=== PATIENT | female | born 1950 | race Caucasian/White ===

== ENCOUNTER 2016-11-02 07:04 | Outpatient (CLI) | payer BC ==
[2016-11-02 11:54] LABS: CHOL/HDL RATIO 2.7 (<4.4); CHOLESTEROL 251 mg/dL; HDL CHOLESTEROL 92 mg/dL; LDL/HDL RATIO 1.6 (<4.4); TRIGLYCERIDES 48 mg/dL; VLDL CHOLESTEROL 10 mg/dL
== END 2016-11-02 07:05 | disposition home or self-care (01) ==
LOC: LAB.F 07:04
PROVIDERS: ATTEND Internal Medicine
DX: Z13.6 Encounter for screening for cardiovascular disorders (principal)
CPT/HCPCS: 36415; 80061

== ENCOUNTER 2017-03-16 13:24 | Outpatient (CLI) | payer BC, OTHER ==
--- NOTE | 2017-03-17 20:02 | XRAY Report ---
DATE OF SERVICE: 03/16/2017 TWO-VIEW CHEST: 03/16/2017 CLINICAL INDICATION: Chest pain. COMPARISON: 03/11/2012 FINDINGS: Frontal and lateral views of the chest demonstrate a normal cardiac silhouette. The lungs are clear. No effusion or pneumothorax is present. IMPRESSION: No evidence of acute cardiopulmonary disease. No significant interval change. TD: 03/17/2017 10:02
== END 2017-03-16 13:25 | disposition home or self-care (01) ==
LOC: RT.S 13:24
PROVIDERS: ATTEND Internal Medicine
DX: R07.9 Chest pain, unspecified (principal); F41.1 Generalized anxiety disorder; G47.00 Insomnia, unspecified; Z78.0 Asymptomatic menopausal state
CPT/HCPCS: 71020; 93005

== ENCOUNTER 2017-03-17 08:53 | Outpatient (CLI) | payer OTHER ==
--- NOTE | 2017-03-18 17:06 | DEXA Report ---
DEXA SCAN: 03/17/2017 CLINICAL INDICATION: Postmenopausal. TECHNIQUE: Dual energy x-ray absorptiometry (DXA) was performed on a [employer]joo.[employer] system. Regions measured are the AP spine, femoral neck, and, if needed, forearm. COMPARISON: None. In accordance with the International Society for Clinical Densitometry (ISCD) guidelines, data from previous exams may be reanalyzed using current recommendations and techniques. This is done to allow a more accurate basis for comparison with the current study. FINDINGS Data for the lumbar spine is as follows: REGION BMD (g/cm/cm) T-SCORE Z-SCORE L1 0.942 -1.6 0.1 L2 1.040 -1.3 0.3 L3 1.119 -0.7 1.0 L4 0.956 -2.0 -0.4 TOTAL L1-L4 1.010 -1.4 0.2 NOTE: All evaluable vertebrae are used for classification. Data for the hip is as follows: REGION BMD (g/cm/cm) T-SCORE Z-SCORE Neck 0.748 -2.1 -0.6 TOTAL 0.800 -1.6 -0.4 NOTE: The femoral neck or total proximal femur, whichever is lowest, is used for classification. IMPRESSION THE WHO CLASSIFICATION BASED ON THE INTERNATIONAL REFERENCE STANDARD IS OSTEOPENIA. THE FRACTURE RISK IS INCREASED. RECOMMENDATION: Patients with diagnosis of osteoporosis or osteopenia should have regular bone mineral density assessment. For those eligible for Medicare, routine testing is allowed once every 2 years. Testing frequency can be increased for patients who have rapidly progressing disease or for those who are receiving medical therapy to restore bone mass. COMMENT: World Health Organization (WHO) definitions for osteoporosis and osteopenia: NORMAL BMD: T-score at 1.0 or higher, fracture risk is low. OSTEOPENIA BMD: T-score between 1.0 and -2.5, fracture risk is increased. OSTEOPOROSIS BMD: T-score at 2.5 or lower, fracture risk high. National Osteoporosis Foundation recommends: 1. Obtain adequate dietary calcium (at least 1200 mg per day) and vitamin D (400 -800 international units per day). 2. Participate, as appropriate, in regular weightbearing and muscle- strengthening exercise. 3. Avoid tobacco use and reduce alcohol and caffeine intake. 4. For more detailed information see the website at www.NOF.org. TD: 03/17/2017 10:47 MTDD
== END 2017-03-17 08:54 | disposition home or self-care (01) ==
LOC: DI 08:53
PROVIDERS: ATTEND Internal Medicine
DX: M85.89 Other specified disorders of bone density and structure, multiple sites (principal)
CPT/HCPCS: 77080

== ENCOUNTER 2018-04-05 10:51 | Day surgery (SDC) | payer MEDICARE, BC ==
[2018-04-05] MEDS ORDERED: LACTATED RINGERS 1,000 ML IV ONE (10:55)
[2018-04-05] MEDS ORDERED: fentaNYL 250 MCG/5 ML VIAL IVP ONE (12:34)
[2018-04-05] MEDS ORDERED: MIDAZOLAM 2 MG/2 ML VIAL IVP ONE (12:34)
[2018-04-05 13:17] VITALS: BP 111/48
== END 2018-04-05 10:52 | disposition home or self-care (01) ==
LOC: SDS 10:51
PROVIDERS: ATTEND Internal Medicine
PROC: 0DJD8ZZ Inspection of Lower Intestinal Tract, Via Natural or Artificial Opening Endoscopic (ICD-10-PCS; principal; 2018-04-05 12:00)
DX: Z12.11 Encounter for screening for malignant neoplasm of colon (principal); Z83.71 Family history of colonic polyps; K64.8 Other hemorrhoids; K57.30 Diverticulosis of large intestine without perforation or abscess without bleeding; Z80.0 Family history of malignant neoplasm of digestive organs
CPT/HCPCS: G0105; J3010; J7120

== ENCOUNTER 2019-05-15 07:13 | Outpatient (CLI) | payer MEDICARE, BC ==
[2019-05-15 10:04] LABS: HGB - HEMOGLOBIN 14.2 g/dL (12.0-16.0); MEAN CORPUSCULAR HEMOGLOBIN 30.1 pg (27.0-31.0); MEAN CORPUSCULAR HGB CONC 32.6 g/dL (32.0-36.0); MEAN CORPUSCULAR VOLUME 92.6 fL (81.0-99.0); MEAN PLATELET VOLUME 9.8 fL (7.9-10.8); RED BLOOD COUNT 4.71 10^6/uL (4.20-5.40); RED CELL DISTRIBUTION WIDTH 13.2 % (12.0-15.0); WHITE BLOOD COUNT 5.3 x10^3/uL (4.8-10.8)
[2019-05-15 10:24] LABS: ALBUMIN 4.1 g/dL (3.2-5.5); ALBUMIN/GLOBULIN RATIO 1.6 (1.0-2.2); ALKALINE PHOSPHATASE 68 IU/L (42-121); ALT ALANINE AMINOTRANSFERASE 16 IU/L (10-60); AST ASPARTATE AMINOTRANSFERASE 17 IU/L (10-42); BILIRUBIN,TOTAL 0.6 mg/dL (0.2-1.0); BUN - BLOOD UREA NITROGEN 20 mg/dL (6-20); CALCIUM 9.2 mg/dL (8.5-10.3); CARBON DIOXIDE - CO2 27 mmol/L (21-32); CHLORIDE 106 mmol/L (101-111); CHOL/HDL RATIO 2.7 (<4.4); CHOLESTEROL 236 mg/dL; CREATININE 0.7 mg/dL (0.4-1.0); GFR - MDRD 83 (>89); GLUCOSE 91 mg/dL (70-100); HDL CHOLESTEROL 88 mg/dL; LDL CHOLESTEROL,CALCULATED 139 mg/dL; LDL/HDL RATIO 1.6 (<4.4); SODIUM 140 mmol/L (135-145); TOTAL PROTEIN 6.6 g/dL (6.7-8.2); VLDL CHOLESTEROL 9 mg/dL
== END 2019-05-15 07:14 | disposition home or self-care (01) ==
LOC: LAB.S 07:13
PROVIDERS: ATTEND Family Medicine Sports Medicine
DX: Z00.00 Encounter for general adult medical examination without abnormal findings (principal); F33.41 Major depressive disorder, recurrent, in partial remission
CPT/HCPCS: 36415; 80053; 80061; 83721; 84443; 85027

== ENCOUNTER 2020-06-20 07:38 | Outpatient (CLI) | payer MEDICARE, BC ==
[2020-06-20 15:33] LABS: HCT - HEMATOCRIT 43.4 % (37.0-47.0); MEAN CORPUSCULAR HGB CONC 32.3 g/dL (32.0-36.0); MEAN CORPUSCULAR VOLUME 93.1 fL (81.0-99.0); MEAN PLATELET VOLUME 9.7 fL (7.9-10.8); RED BLOOD COUNT 4.66 10^6/uL (4.20-5.40); RED CELL DISTRIBUTION WIDTH 13.6 % (12.0-15.0); WHITE BLOOD COUNT 4.8 x10^3/uL (4.8-10.8)
[2020-06-20 16:11] LABS: ALBUMIN 4.3 g/dL (3.2-5.5); ALBUMIN/GLOBULIN RATIO 1.7 (1.0-2.2); ALKALINE PHOSPHATASE 72 IU/L (42-121); ALT ALANINE AMINOTRANSFERASE 19 IU/L (10-60); AST ASPARTATE AMINOTRANSFERASE 19 IU/L (10-42); BILIRUBIN,TOTAL 0.8 mg/dL (0.2-1.0); BUN - BLOOD UREA NITROGEN 20 mg/dL (6-20); CALCIUM 9.4 mg/dL (8.5-10.3); CARBON DIOXIDE - CO2 26 mmol/L (21-32); CHLORIDE 107 mmol/L (101-111); CHOL/HDL RATIO 2.8 (<4.4); CHOLESTEROL 245 mg/dL; CREATININE 0.8 mg/dL (0.4-1.0); GFR - MDRD 71 (>89); GLUCOSE 94 mg/dL (70-100); HDL CHOLESTEROL 88 mg/dL; LDL CHOLESTEROL,CALCULATED 149 mg/dL; LDL/HDL RATIO 1.7 (<4.4); POTASSIUM 3.9 mmol/L (3.5-5.0); SODIUM 141 mmol/L (135-145); TOTAL PROTEIN 6.9 g/dL (6.7-8.2); TRIGLYCERIDES 40 mg/dL; VLDL CHOLESTEROL 8 mg/dL
== END 2020-06-20 07:39 | disposition home or self-care (01) ==
LOC: LAB.S 07:38
PROVIDERS: ATTEND Family Medicine Sports Medicine
DX: Z00.00 Encounter for general adult medical examination without abnormal findings (principal); F33.41 Major depressive disorder, recurrent, in partial remission; J45.20 Mild intermittent asthma, uncomplicated
CPT/HCPCS: 36415; 80053; 80061; 83721; 84443; 85027

== ENCOUNTER 2021-08-09 19:02 | Emergency (ER) | payer MEDICARE, BC ==
[2021-08-09] MEDS ORDERED: BACITRACIN ZINC OINT 1 PACKET TOP STA (20:16)
--- NOTE | 2021-08-09 20:22 | ED Physician Documentation ---
History of Present Illness - Stated complaint Stated Complaint: FELL OFF LADDER/HEAD INJURY/SKIN TEAR - Chief complaint Chief Complaint: Laceration - History obtained from History obtained from: Patient - History of Present Illness Timing: Today Pain level max: 7 Pain level now: 4 - Additonal information Additional information: 70-year-old female fell off of a 4 foot ladder today injuring her left ribs, her head, occiput, and the left forearm. Tetanus is up-to-date. Better with Motrin. No loss of consciousness. No vomiting. No neck or back pain. No numbness or tingling. No abdominal pain. Does not take any anticoagulants. 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 HEENT: Tonsil/Adenoidectomy - Present Medications Home Medications: Ambulatory Orders Medication Instructions Recorded Confirmed Escitalopram [Lexapro] 10 mg PO DAILY 04/05/18 08/09/21 buPROPion [Wellbutrin Sr] 150 mg PO DAILY 04/05/18 08/09/21 - Allergies Allergies/Adverse Reactions: Allergies Allergy/AdvReac Type Severity Reaction Status Date / Time No Known Drug Allergies Allergy Verified 08/09/21 19:20 - Social History Does the pt smoke?: No Smoking Status: Never smoker Does the pt drink ETOH?: No Does the pt have substance abuse?: No - Immunizations Immunizations are current?: Yes PD ED PE NORMAL - Vitals Vital signs reviewed: Yes - General General: Alert and oriented X 3, No acute distress, Well developed/nourished - HEENT HEENT: PERRL, Moist mucous membranes, Other (Small occipital hematoma. No palp able skull fractures) - Neck Neck: Supple, no meningeal sign, No bony TTP, C-Spine cleared by NEXUS criteria - Cardiac Cardiac: RRR, Strong equal pulses - Respiratory Respiratory: No respiratory distress, Clear bilaterally - Abdomen Abdomen: Soft, Non tender, Non distended - Back Back: No spinal TTP (Mild tenderness palpation left posterior ribs. No crepitus. No ecchymosis.) - Derm Derm: Warm and dry - Extremities Extremities: No tenderness to palpate, Normal ROM s pain, Other (Small skin tear to the left forearm. No active bleeding. 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, No motor deficit, No sensory deficit, Normal speech Eye Opening: Spontaneous Motor: Obeys Commands Verbal: Oriented GCS Score: 15 - Psych Psych: Normal mood, Normal affect Results - Vitals Vitals: Vital Signs - 24 hr 08/09/21 08/09/21 19:10 22:03 Temperature 36.6 C 36.7 C Heart Rate 67 65 Respiratory 16 16 Rate Blood Pressure 154/90 H 145/88 H O2 Saturation 96 98 Oxygen O2 Source Room air - Rads (name of study) Head CT Radiology: Final report received, EMP read contemporaneously, See rad report Left ribs with chest x-ray Radiology: Final report received, EMP read contemporaneously, See rad report PD MEDICAL DECISION MAKING - ED course Complexity details: reviewed results, re-evaluated patient, considered differential, d/w patient, d/w family ED course: The skin tear on the left arm was cleansed and bandaged. Wound care instructions given. No acute findings on head CT. The chest x-ray does show small indistinct clustered nodular opacities peripherally in the left lung base. We will have her follow-up with her doctor for a chest CT. No evidence of pneumothorax, hemothorax or displaced rib fractures. Pain well controlled with Motrin. Patient counseled regarding signs and symptoms for which I believe and urgent re-evaluation would be necessary. Patient with good understanding of and agreement to plan and is comfortable going home at this time This document was made in part using voice recognition software. While efforts are made to proofread this document, sound alike and grammatical errors may occur. Chest Xray IMPRESSION: 1. No displaced rib fracture identified. 2. Small indistinct clustered nodular opacities peripherally in left lung base. The findings are nonspecific and may represent an infectious or inflammatory process but neoplasm cannot be excluded. Recommend further evaluation with chest CT when clinically feasible. 3. Findings compatible with COPD. CT HEAD IMPRESSION: 1. No acute intracranial abnormality. Departure - Departure Disposition: Home, Self Care Clinical Impression: Skin tear, Lung nodule Closed head injury Qualifiers: Encounter type: initial encounter Qualified Code(s): S09.90XA - Unspecified injury of head, initial encounter Chest wall contusion Qualifiers: Encounter type: initial encounter Laterality: left Qualified Code(s): S20.212A - Contusion of left front wall of thorax, initial encounter Condition: Good Instructions: ED Contusion Chest Wall, ED Head Injury Closed, ED Avulsion Dermal Follow-Up: WINNIE CALDERON MD [Primary Care Provider] - Within 1 week Comments: Please follow-up with your doctor for further care. Return if you worsen. You can use Motrin or Tylenol as needed for pain. Keep the wound on your arm clean. Return if you notice redness swelling or drainage from the wound. You do have clustered nodule opacities peripherally in your left lung base on chest x-ray. This is nonspecific, but a further evaluation with a chest CT is recommended with your doctor. Please follow-up with your doctor this week. Chest Xray IMPRESSION: 1. No displaced rib fracture identified. 2. Small indistinct clustered nodular opacities peripherally in left lung base. The findings are nonspecific and may represent an infectious or inflammatory process but neoplasm cannot be excluded. Recommend further evaluation with chest CT when clinically feasible. 3. Findings compatible with COPD. CT HEAD IMPRESSION: 1. No acute intracranial abnormality. Discharge Date/Time: 08/09/21 22:08
--- NOTE | 2021-08-09 21:27 | CT Report ---
PROCEDURE: HEAD WO INDICATIONS: fall, head injury off ladder TECHNIQUE: Noncontrast 5 mm thick angled axial sections acquired from the foramen magnum to the vertex. For rad iation dose reduction, the following was used: automated exposure control, adjustment of mA and/or k V according to patient size. COMPARISON: None. FINDINGS: Image quality: Excellent. CSF spaces: Basal cisterns are patent. No extra-axial fluid collections. Ventricles are normal in size and shape. Brain: No intracranial hemorrhage, mass, or mass effect. Steven-white matter interface appears preser siomara. There are mild periventricular matter hypodensities consistent with mild chronic small vessel is chemic changes. Skull and face: Calvarium and visualized facial bones are intact, without suspicious lesions. Sinuses: Visualized sinuses and mastoids are clear. IMPRESSION: 1. No acute intracranial abnormality. Reviewed by: Marino Mueller MD on 08/09/2021 9:25 PM PDT Approved by: Marino Mueller MD on 08/09/2021 9:25 PM PDT Station ID: [id number]
--- NOTE | 2021-08-09 21:49 | XRAY Report ---
PROCEDURE: Ribs w/PA Chest LT INDICATIONS: fall, L rib pain TECHNIQUE: 2 views of the left ribs were acquired, along with a single view chest. COMPARISON: None. FINDINGS: Surgical changes and devices: None. Bones and chest wall: No displaced rib fracture identified. No suspicious bony lesions. Overlying s oft tissues appear unremarkable. Lungs and pleura: There are small indistinct clustered nodular opacities within the left lung base. There is hyperinflation of the lungs with flattening of hemidiaphragms suggestive of COPD. No pleural effusions or pneumothorax. Mediastinum: Mediastinal contours appear normal. Heart size is normal. IMPRESSION: 1. No displaced rib fracture identified. 2. Small indistinct clustered nodular opacities peripherally in left lung base. The findings are nons pecific and may represent an infectious or inflammatory process but neoplasm cannot be excluded. Shaheen mmend further evaluation with chest CT when clinically feasible. 3. Findings compatible with COPD. Reviewed by: Marino Mueller MD on 08/09/2021 9:48 PM PDT Approved by: Marino Mueller MD on 08/09/2021 9:48 PM PDT Station ID: [id number]
[2021-08-09 22:04] VITALS: BP 145/88
== END 2021-08-09 22:08 | disposition home or self-care (01) ==
LOC: ED 19:02
DX: S09.90XA Unspecified injury of head, initial encounter (principal); S20.212A Contusion of left front wall of thorax, initial encounter; S51.802A Unspecified open wound of left forearm, initial encounter; W11.XXXA Fall on and from ladder, initial encounter
CPT/HCPCS: 70450; 71101; 99282; 99284; A9270

== ENCOUNTER 2021-08-28 11:48 | Outpatient (CLI) | payer MEDICARE, BC ==
[2021-08-28 16:35] LABS: CREATININE 0.8 mg/dL (0.4-1.0)
== END 2021-08-28 11:49 | disposition home or self-care (01) ==
LOC: LAB.S 11:48
PROVIDERS: ATTEND Family Medicine
DX: R91.1 Solitary pulmonary nodule (principal)
CPT/HCPCS: 36415; 82565

== ENCOUNTER 2021-11-26 07:09 | Outpatient (CLI) | payer MEDICARE, BC ==
[2021-11-26 15:35] LABS: BASOPHILS # (AUTO) 0.1 10^3/uL (0.0-0.1); BASOPHILS % (AUTO) 1.1 %; EOSINOPHILS # (AUTO) 0.2 10^3/uL (0.0-0.7); EOSINOPHILS % (AUTO) 4.6 %; HCT - HEMATOCRIT 45.5 % (37.0-47.0); HGB - HEMOGLOBIN 14.6 g/dL (12.0-16.0); LYMPHOCYTES # (AUTO) 1.2 10^3/uL (1.5-3.5); LYMPHOCYTES % (AUTO) 28.4 %; MEAN CORPUSCULAR HEMOGLOBIN 29.6 pg (27.0-31.0); MEAN CORPUSCULAR HGB CONC 32.1 g/dL (32.0-36.0); MEAN CORPUSCULAR VOLUME 92.3 fL (81.0-99.0); MEAN PLATELET VOLUME 9.5 fL (7.9-10.8); MONOCYTES # (AUTO) 0.4 10^3/uL (0.0-1.0); MONOCYTES % (AUTO) 10.1 %; NEUTROPHILS # (AUTO) 2.4 10^3/uL (1.5-6.6); NEUTROPHILS % (AUTO) 55.8 %; PLT - PLATELET COUNT 260 10^3/uL (130-450); RED BLOOD COUNT 4.93 10^6/uL (4.20-5.40); RED CELL DISTRIBUTION WIDTH 12.9 % (12.0-15.0); WHITE BLOOD COUNT 4.4 x10^3/uL (4.8-10.8)
[2021-11-26 16:34] LABS: ESTIMATED AVERAGE GLUCOSE 111 mg/dL (70-100); HEMOGLOBIN A1c% 5.5 % (4.27-6.07)
[2021-11-26 16:43] LABS: ALBUMIN/GLOBULIN RATIO 1.4 (1.0-2.2); ALKALINE PHOSPHATASE 75 IU/L (42-121); ALT ALANINE AMINOTRANSFERASE 16 IU/L (10-60); AST ASPARTATE AMINOTRANSFERASE 16 IU/L (10-42); BILIRUBIN,TOTAL 0.9 mg/dL (0.2-1.0); BUN - BLOOD UREA NITROGEN 16 mg/dL (6-20); CALCIUM 9.4 mg/dL (8.5-10.3); CARBON DIOXIDE - CO2 28 mmol/L (21-32); CHLORIDE 105 mmol/L (101-111); CHOL/HDL RATIO 2.9 (<4.4); CHOLESTEROL 238 mg/dL; CREATININE 0.8 mg/dL (0.4-1.0); GFR - MDRD 71 (>89); GLUCOSE 88 mg/dL (70-100); HDL CHOLESTEROL 82 mg/dL; LDL CHOLESTEROL,CALCULATED 148 mg/dL; LDL/HDL RATIO 1.8 (<4.4); POTASSIUM 3.9 mmol/L (3.5-5.0); SODIUM 140 mmol/L (135-145); THYROID STIMULATING HORMONE 4.15 uIU/mL (0.34-5.60); TOTAL PROTEIN 6.8 g/dL (6.7-8.2); TRIGLYCERIDES 40 mg/dL; VLDL CHOLESTEROL 8 mg/dL
== END 2021-11-26 07:10 | disposition home or self-care (01) ==
LOC: LAB.S 07:09
PROVIDERS: ATTEND Internal Medicine
DX: Z00.00 Encounter for general adult medical examination without abnormal findings (principal)
CPT/HCPCS: 36415; 80053; 80061; 83036; 83721; 84443; 85025

== ENCOUNTER 2022-07-13 07:00 | Outpatient (CLI) | payer MEDICARE, BC ==
--- NOTE | 2022-07-13 11:14 | XRAY Report ---
PROCEDURE: Chest 2 View X-Ray INDICATIONS: COUGH TECHNIQUE: 2 views of the chest were acquired. COMPARISON: Chest x-ray 08/09/2021 FINDINGS: Surgical changes and devices: None. Lungs and pleura: No pleural effusions or pneumothorax. Lungs are clear. Mediastinum: Mediastinal contours appear normal. Heart size is normal. Bones and chest wall: No suspicious bony lesions. Overlying soft tissues appear unremarkable. IMPRESSION: No acute pulmonary process. Reviewed by: Desire Chavira MD on 07/13/2022 11:13 AM PDT Approved by: Desire Chavira MD on 07/13/2022 11:13 AM PDT Station ID: [id number]
== END 2022-07-13 23:59 | disposition home or self-care (01) ==
LOC: DI.S 07:00
PROVIDERS: ATTEND Physician Assistant
DX: R05.9 Cough, unspecified (principal)

== ENCOUNTER 2022-10-27 08:00 | Outpatient (CLI) | payer MEDICARE, BC ==
[2022-10-27 14:39] LABS: BILIRUBIN,URINE NEGATIVE (NEGATIVE); GLUCOSE, URINE (UA) NEGATIVE (NEGATIVE); KETONES,URINE (UA) NEGATIVE (NEGATIVE); LEUKOCYTE ESTERASE, URINE TRACE (NEGATIVE); NITRITE,URINE NEGATIVE (NEGATIVE); OCCULT BLOOD,URINE LARGE (NEGATIVE); PROTEIN,URINE NEGATIVE (NEGATIVE); UROBILINOGEN,URINE 0.2 (NORMAL) E.U./dL (NORMAL)
[2022-10-27 14:46] LABS: CLARITY,URINE HAZY (CLEAR); SQUAMOUS EPITHELIAL CELL,UR RARE Squamous (<= Few)
[2022-10-27 14:47] LABS: BACTERIA,URINE Rare /HPF (None Seen)
== END 2022-10-27 23:59 | disposition home or self-care (01) ==
LOC: LAB.S 08:00
PROVIDERS: ATTEND Emergency Medicine
DX: R30.0 Dysuria (principal)
CPT/HCPCS: 81001; 87077; 87086; 87181

== ENCOUNTER 2022-12-29 08:00 | Outpatient (CLI) | payer MEDICARE, BC | END 2022-12-29 23:59 | disposition home or self-care (01) | LOC: LAB 08:00 | PROVIDERS: ATTEND Physician Assistant Medical | DX: R30.0 Dysuria (principal) | CPT/HCPCS: 87086; 87181 ==

== ENCOUNTER 2023-12-06 04:48 | Emergency (ER) | payer MEDICARE, BC ==
--- NOTE | 2023-12-06 05:01 | ED Physician Documentation ---
PD HPI ABD PAIN - Stated complaint Stated Complaint: ABD PX - Chief complaint Chief Complaint: Abd Pain - History obtained from History obtained from: Patient - History of Present Illness Timing - onset: How many days ago (03/22) Timing - duration: Days (03/22) Timing - details: Gradual onset, Still present Quality: Cramping, Aching, Pain Location: Suprapubic, LLQ Radiation: No: Left flank Improved by: BM. No: Eating Worsened by: No: Eating Associated symptoms: Fever (subjective), Nausea. No: Diarrhea, Constipation, Dysuria Similar symptoms before: Has not had sx before Review of Systems Constitutional: reports: Fever, Chills Nose: denies: Rhinorrhea / runny nose, Congestion Throat: denies: Sore throat Respiratory: denies: Cough GI: reports: Nausea. 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 HEENT: Tonsil/Adenoidectomy - Present Medications Home Medications: Ambulatory Orders Medication Instructions Recorded Confirmed Escitalopram [Lexapro] 10 mg PO DAILY 04/05/18 08/09/21 buPROPion [Wellbutrin Sr] 150 mg PO DAILY 04/05/18 08/09/21 Amox/Clav 875/125 [Augmentin] 1 each PO Q12H #14 tablet 12/06/23 Docusate Sodium 100Mg Capsule 100 mg PO DAILY #10 cap 12/06/23 [Colace 100Mg Capsule] HYDROcod/ACETAM 5/325 [[place] 5/325] 1 ea PO Q6H PRN #14 tablet 12/06/23 Meloxicam [Mobic] 7.5 mg PO BID 10 Days #20 tablet 12/06/23 Ondansetron Odt [Zofran] 4 mg TL Q6H PRN #10 tablet 12/06/23 - Allergies Allergies/Adverse Reactions: Allergies Allergy/AdvReac Type Severity Reaction Status Date / Time No Known Drug Allergies Allergy Verified 08/09/21 19:20 - Social History Does the pt smoke?: No Smoking Status: Never smoker Does the pt drink ETOH?: No Does the pt have substance abuse?: No - Immunizations Immunizations are current?: Yes PD ED PE NORMAL - Vitals Vital signs reviewed: Yes - General General: Alert and oriented X 3, No acute distress, Well developed/nourished - Cardiac Cardiac: RRR, No murmur - Respiratory Respiratory: No respiratory distress, Clear bilaterally - Abdomen Abdomen: Normal bowel sounds, Soft, Non distended, Other (tender with some local guarding LLQ and suprapubic. No percussion nor rebound tenderness. ) Results - Vitals Vitals: Oxygen O2 Source Room air - Labs Labs: Laboratory Tests 12/06/23 12/06/23 12/06/23 05:02 05:30 05:30 WBC 8.9 RBC 4.77 Hgb 14.2 Hct 43.3 MCV 90.8 MCH 29.8 MCHC 32.8 RDW 12.9 Plt Count 232 MPV 9.7 Neut # (Auto) 6.8 H Lymph # (Auto) 1.1 L [place] # (Auto) 0.9 Eos # (Auto) 0.1 Baso # (Auto) 0.0 Absolute Nucleated RBC 0.00 Nucleated RBC % 0.0 Platelet Estimate NORMAL (130-450,000) Platelet Morphology NORMAL APPEARANCE Sodium 140 Potassium 3.8 Chloride 109 Carbon Dioxide 25 Anion Gap 6.0 BUN 15 Creatinine 0.8 Estimated GFR (MDRD) 71 L Glucose 104 Lactic Acid Calcium 9.7 Magnesium 1.7 Total Bilirubin 0.8 AST 17 ALT 15 Alkaline Phosphatase 77 Total Protein 6.9 Albumin 4.1 Globulin 2.8 Albumin/Globulin Ratio 1.5 Lipase 28 Urine Color YELLOW Urine Clarity CLEAR Urine pH 6.0 Ur Specific [place] 1.015 Urine Protein NEGATIVE Urine Glucose (UA) NEGATIVE Urine Ketones NEGATIVE Urine Occult Blood NEGATIVE Urine Nitrite NEGATIVE Urine Bilirubin NEGATIVE Urine Urobilinogen 0.2 (NORMAL) Ur Leukocyte Esterase NEGATIVE Urine RBC 0-5 Urine WBC 0-3 Ur Squamous Epith Cells RARE Squamous Urine Bacteria Rare Urine Mucus Few Strands Urine Culture Comments NOT INDICATED 12/06/23 06:02 WBC RBC Hgb Hct MCV MCH MCHC RDW Plt Count MPV Neut # (Auto) Lymph # (Auto) [place] # (Auto) Eos # (Auto) Baso # (Auto) Absolute Nucleated RBC Nucleated RBC % Platelet Estimate Platelet Morphology Sodium Potassium Chloride Carbon Dioxide Anion Gap BUN Creatinine Estimated GFR (MDRD) Glucose Lactic Acid 0.4 L Calcium Magnesium Total Bilirubin AST ALT Alkaline Phosphatase Total Protein Albumin Globulin Albumin/Globulin Ratio Lipase Urine Color Urine Clarity Urine pH Ur Specific [place] Urine Protein Urine Glucose (UA) Urine Ketones Urine Occult Blood Urine Nitrite Urine Bilirubin Urine Urobilinogen Ur Leukocyte Esterase Urine RBC Urine WBC Ur Squamous Epith Cells Urine Bacteria Urine Mucus Urine Culture Comments - Rads (name of study) abd/pelvic CT Relevant Findings:: Prelim report reviewed (sigmoid diverticulitis with short segment colonic imflallation. No perforamtion nor abscess. Prominent veins. ), EMP independent interpretation of test PD Medical Decision Making - ED course Complexity details: reviewed results (CT showing short segment colitis and diverticulitis, uncomplicated. ), considered differential (lower abd pain and tenderness. Has feeling of bowel urgency without output. ), d/w patient ED course: has just couple days of abd pain with CT showing uncomplicated diverticulitis, and she has normal WBC and lactic acid. Seems stable for outpt treatment. Given initial doses meds in ED. Departure - Departure Disposition: Home, Self Care Clinical Impression: Lower abdominal pain, Sigmoid diverticulitis Condition: Stable Record reviewed to determine appropriate education?: Yes Instructions: ED Diverticulitis Follow-Up: Luke Baxter MD [Physician No Access] - Prescriptions: Amox/Clav 875/125 [Augmentin] 1 each PO Q12H #14 tablet Docusate Sodium 100Mg Capsule [Colace 100Mg Capsule] 100 mg PO DAILY #10 cap Meloxicam [Mobic] 7.5 mg PO BID 10 Days #20 tablet HYDROcod/ACETAM 5/325 [[place] 5/325] 1 ea PO Q6H PRN #14 tablet PRN Reason: Pain Ondansetron Odt [Zofran] 4 mg TL Q6H PRN #10 tablet PRN Reason: Nausea / Vomiting Comments: Your CT scan shows an area of inflammation in the sigmoid colon which is down in the lower abdomen/pelvis. No obstruction. The inflammation in that area will give a feeling often of a rectal fullness as if you have to have a bowel movement. There really is not much stool located in the area based on your CT scan. There are clumps of more prominent stool up higher in the intestine. This can be leading to some of the bloating feeling. For that and for the diverticul itis, mild stool softener can be appropriate so the stool is more even and not his irritative going by the inflamed area. Diverticulitis starts as a irritation of a diverticulum which then can become inflamed and swollen. As the protective barriers are not as effective, the germs from the and stool can get into the wall and cause infection as well. Therefore with the degree of symptoms and pain you are having, we are treated as likely into the early infection stage of it in addition to the inflammation and irritation. Comment treatment would be clear liquids and easy to digest food, not really bulky or fibrous for the next several days to week. Stay well-hydrated. A mild stool softener so you do not get bound from the pain medicines. Then a combination of anti-inflammatories along with antibiotics and to that add Tylenol every 4-6 hours if needed or hydrocodone pain medicine if needed for worse pain. [facility] in [place]. Recheck if not improving steadily and well over the next 2 to 3 days and resolved by 3 to 5 days. Return if worsening symptoms despite medicines. To reiterate, on your CT scan there was no signs of an obstruction or blockage or such. However there was a small area of an outpouching "of diverticula that has local swelling and inflammation around it. Forms: PCP List Discharge Date/Time: 12/06/23 08:20
[2023-12-06 05:05] VITALS: O2SAT 100
[2023-12-06] MEDS ORDERED: iohexoL-300 100 ML VIAL ONE (05:30)
[2023-12-06] MEDS: ONDANSETRON 4 MG/2 ML VIAL IVP STA ×2 (05:36→06:30)
[2023-12-06] MEDS: KETOROLAC 15 MG/ML VIAL IVP STA (05:36)
[2023-12-06] MEDS: SODIUM CHLORIDE 0.9% 1,000 ML IV STA (05:37)
[2023-12-06] MEDS: HYDROmorphone 0.5 MG/0.5 ML SYRINGE IVP STA (05:37)
[2023-12-06 05:38] LABS: BILIRUBIN,URINE NEGATIVE (NEGATIVE); GLUCOSE, URINE (UA) NEGATIVE (NEGATIVE); KETONES,URINE (UA) NEGATIVE (NEGATIVE); LEUKOCYTE ESTERASE, URINE NEGATIVE (NEGATIVE); NITRITE,URINE NEGATIVE (NEGATIVE); OCCULT BLOOD,URINE NEGATIVE (NEGATIVE); PROTEIN,URINE NEGATIVE (NEGATIVE); UROBILINOGEN,URINE 0.2 (NORMAL) E.U./dL (NORMAL)
[2023-12-06 05:40] LABS: BASOPHILS % (AUTO) 0.4 %; EOSINOPHILS # (AUTO) 0.1 10^3/uL (0.0-0.7); EOSINOPHILS % (AUTO) 1.3 %; HCT - HEMATOCRIT 43.3 % (37.0-47.0); HGB - HEMOGLOBIN 14.2 g/dL (12.0-16.0); LYMPHOCYTES # (AUTO) 1.1 10^3/uL (1.5-3.5); LYMPHOCYTES % (AUTO) 12.4 %; MEAN CORPUSCULAR HEMOGLOBIN 29.8 pg (27.0-31.0); MEAN CORPUSCULAR HGB CONC 32.8 g/dL (32.0-36.0); MEAN CORPUSCULAR VOLUME 90.8 fL (81.0-99.0); MEAN PLATELET VOLUME 9.7 fL (7.9-10.8); MONOCYTES # (AUTO) 0.9 10^3/uL (0.0-1.0); MONOCYTES % (AUTO) 9.8 %; NEUTROPHILS # (AUTO) 6.8 10^3/uL (1.5-6.6); NEUTROPHILS % (AUTO) 75.9 %; PLT - PLATELET COUNT 232 10^3/uL (130-450); RED BLOOD COUNT 4.77 10^6/uL (4.20-5.40); RED CELL DISTRIBUTION WIDTH 12.9 % (12.0-15.0); WHITE BLOOD COUNT 8.9 x10^3/uL (4.8-10.8)
[2023-12-06 05:47] LABS: BACTERIA,URINE Rare /HPF (None Seen); CLARITY,URINE CLEAR (CLEAR); MUCUS,URINE Few Strands; RBC,URINE 0-5 /HPF (0-5); SQUAMOUS EPITHELIAL CELL,UR RARE Squamous (<= Few); WBC,URINE 0-3 /HPF (0-5)
[2023-12-06 05:51] LABS: MAGNESIUM 1.7 mg/dL (1.7-2.3)
[2023-12-06 06:03] LABS: ALBUMIN 4.1 g/dL (3.2-5.5); ALBUMIN/GLOBULIN RATIO 1.5 (1.0-2.2); BILIRUBIN,TOTAL 0.8 mg/dL (0.2-1.0); CALCIUM 9.7 mg/dL (8.5-10.3); CREATININE 0.8 mg/dL (0.6-1.3); POTASSIUM 3.8 mmol/L (3.5-4.5); TOTAL PROTEIN 6.9 g/dL (6.4-8.9)
[2023-12-06 06:18] LABS: PLATELET ESTIMATE, MANUAL NORMAL (130-450,000) (NORMAL); PLATELET MORPHOLOGY NORMAL APPEARANCE (NORMAL)
[2023-12-06] MEDS: iohexoL-300 100 ML VIAL IVP ONE (06:22)
[2023-12-06] MEDS: HYDROmorphone 1 MG/ML CARPUJECT IVP STA (06:47)
[2023-12-06] MEDS: AMPICILLIN/SULBACTAM 3 GM in SODIUM CHLORIDE 0.9% MINIBAG 100 ML IV STA (07:14)
[2023-12-06] MEDS: DOCUSATE SODIUM 100 MG CAPSULE PO STA (07:21)
[2023-12-06 07:46] VITALS: BP 150/80
--- NOTE | 2023-12-06 09:00 | CT Report ---
PROCEDURE: Abdomen/Pelvis W INDICATIONS: LLQ Abdominal pain, diverticulitis suspected CONTRAST: OMNI 300, 100mls TECHNIQUE: After the administration of intravenous contrast, a CT scan of the abdomen and pelvis was performed. Images were recorded and evaluated at appropriate window settings. Reformats: coronal and sagittal. F or radiation dose reduction, the following was used: automated exposure control, adjustment of mA and /or kV according to patient size. COMPARISON: None. FINDINGS: Image quality: Diagnostic. Lower chest: Dependent atelectasis in posterior aspect of bilateral lung bases are seen.. Liver: No solid mass. Small well-circumscribed hypodensity areas are seen scattered in the liver pare nchyma and measures up to 1.2 cm in size likely represent benign hepatic cysts. Gallbladder: No radiopaque stones or wall thickening. Biliary tree: No intrahepatic or extrahepatic dilation, accounting for age. Spleen: No splenomegaly. Pancreas: No pancreatic ductal dilation. Adrenals: No adrenal nodule. Kidneys and ureters: No hydronephrosis. No renal cystic lesion which requires follow up. No solid mas s. Stomach, bowel and peritoneum: There is no bowel obstruction. No gastric or small bowel wall thickeni ng. Significant wall thickening involving proximal to mid sigmoid colon with narrowing of the lumen a nd adjacent pericolonic fat stranding best seen on series 2 image 92. No abscess collection. No perit nascimento free air. lymph nodes: No central or retroperitoneal adenopathy. Vessels: No infrarenal aortic aneurysm. Patent portal vein. PELVIS Reproductive organs: Uterus and bilateral ovaries are within normal limits. Prominent periuterine vei ns and left gonadal vein is seen.. Bladder: No abnormal wall thickening, accounting for underdistention. Pelvic lymph nodes: No pelvic adenopathy by size criteria. Bones: No aggressive osseous abnormality. Other: No significant ventral or inguinal hernia. IMPRESSION: 1. Finding is suggestive of acute diverticulitis involving proximal to mid sigmoid colon in left lowe r quadrant. An overlying circumferential mass in the sigmoid colon cannot be excluded.. GI correlatio n is recommended. 2. Prominent periuterine veins and left gonadal vein, concerning for pelvic congestion syndrome sugge st clinical correlation. Findings are concordant with preliminary interpretation provided by [facility]. Reviewed by: Kevin Ervin MD on 12/06/2023 8:59 AM PDT Approved by: Kevin Ervin MD on 12/06/2023 8:59 AM PDT Station ID: [id number]
== END 2023-12-06 08:20 | disposition home or self-care (01) ==
LOC: ED 04:48
DX: K57.32 Diverticulitis of large intestine without perforation or abscess without bleeding (principal); R93.5 Abnormal findings on diagnostic imaging of other abdominal regions, including retroperitoneum
CPT/HCPCS: 36415; 74177; 80053; 81001; 83605; 83690; 83735; 85025; 96365; 96375; 96376; 99283; 99284; A9270; J1170; Q9967; 87086